=== PATIENT | male | born 1990 | race Caucasian/White ===

== ENCOUNTER 2022-05-23 20:04 | Emergency (ER) | payer OTHER ==
[2022-05-23 20:39] LABS: HEMOGLOBIN 14.2 gm/dl (14.0-17.5); RED BLOOD COUNT 4.68 M/UL (4.20-5.50); WHITE BLOOD COUNT 8.6 K/UL (4.5-11.0)
[2022-05-23 20:59] LABS: BUN/CREATININE RATIO 11 (0-10)
[2022-05-23] MEDS ORDERED: ATIVAN0.5 MG PO (21:57)
== END 2022-05-23 22:10 | disposition home or self-care (01) ==
LOC: ER1 20:04
PROVIDERS: Student in an Organized Health Care Education/Training Program
DX: F80.81 Childhood onset fluency disorder (principal); F41.9 Anxiety disorder, unspecified; Z20.822 Contact with and (suspected) exposure to COVID-19
CPT/HCPCS: 0240U; 70450; 80053; 85025; 85610; 85652; 85730; 86140; 99285

== ENCOUNTER 2022-05-29 11:51 | Emergency (ER) | payer OTHER ==
[~2022-05-29 11:51] MED LIST: ATIVAN0.5 MG PO
[2022-05-29 13:54] LABS: HEMOGLOBIN 14.4 gm/dl (14.0-17.5); RED BLOOD COUNT 4.87 M/UL (4.20-5.50)
[2022-05-29 14:08] LABS: BUN/CREATININE RATIO 13 (0-10)
== END 2022-05-29 21:41 | disposition home or self-care (01) ==
LOC: ER1 11:51
PROVIDERS: Physician Assistant
DX: R55 Syncope and collapse (principal); R53.83 Other fatigue; Z90.49 Acquired absence of other specified parts of digestive tract
CPT/HCPCS: 70450; 71045; 80053; 80307; 82550; 82553; 84484; 85025; 93005; 99284